=== PATIENT | female | born 1945 | race Caucasian/White ===

== ENCOUNTER 2017-02-12 21:10 | Inpatient (IN) ==
[2017-02-12] MEDS ORDERED: ONDANSETRON 4 MG/2 ML VIAL IV STA (22:58)
[2017-02-12] MEDS ORDERED: SODIUM CHLORIDE 0.9% 1,000 ML IV STA (22:58)
[2017-02-12 23:07] LABS: Basophils % 0.1 % (0.0-0.8); Hematocrit 38.2 VOL% (35.7-47.0); Hemoglobin 12.7 GM/DL (12.0-16.0); Immature Granulocytes Absolute 0.29 #; Lymphocytes # 1.6 10*3/uL (1.4-4.0); Lymphocytes % 5.7 % (21.3-54.2); Mean Corpuscular HGB Conc 33.2 GM/DL (32-36); Mean Corpuscular Hemoglobin 31 PG (27-34); Mean Corpuscular Volume 92.5 FL (87-102); Mean Platelet Volume 10.6 FL (9.6-12.0); Monocytes # 1.9 10*3/uL (0.11-0.8); Monocytes % 6.8 % (1.7-12.7); Neutrophils # 24.1 10*3/uL (1.4-7.4); Neutrophils % 86.4 % (38.7-73.9); Platelet Count 300 T/CUMM (130-400); Red Blood Count 4.13 MC/CUMM (3.8-5.5); Red Cell Distribution Width 12.6 % (9.3-17.3)
[2017-02-12] MEDS ORDERED: ONDANSETRON 4 MG/2 ML VIAL ONE (23:07)
[2017-02-12] MEDS ORDERED: ACETAMINOPHEN 500 MG TABLET PO STA (23:18)
[2017-02-12 23:19] LABS: Apearance,Urine CLOUDY (Clear); Bacteria,Urine Moderate /HPF (Few); Bilirubin,Urine Negative (Negative); Blood, Urine Small mg/dL (Negative); Glucose,Urine (UA) 150 mg/dL (Negative); Ketones,Urine 5 mg/dL (Negative); Nitrite,Urine Negative (Negative); Protein,Urine 30 MG/DL; RBC,Urine 7 /HPF (0-4); Urine Color Yellow (Yellow); Urine Specific Gravity 1.011 (1.001-1.035); Urine Urobilinogen < 2.0 EU/DL (0.2-1.0); WBC,Urine 485 /HPF (0-6)
[2017-02-12] MEDS ORDERED: ACETAMINOPHEN 500 MG TABLET ONE (23:20)
[2017-02-12 23:24] LABS: Albumin 3.1 G/DL (3.4-5.0); Bilirubin,Total 0.6 MG/DL (0.2-1.0); Calcium 9.4 MG/DL (8.5-10.1); Osmolality,Calculated 269.1 MOS/KG (273-304); Potassium 3.9 MMOL/L (3.5-5.1); Total Protein 8.2 G/DL (6.4-8.3)
--- NOTE | 2017-02-12 23:31 | EKG Report ---
Stationary ECG Study [facility] Test Date: 02/12/2017 11:31:34 PM Pat Name: BARBARA PEREZ Department: Room: Gender: F Clinical Trial Specialist: : [id number] Requested by: Edith Orr Order Number: [id number] Reading MD: MAGUI WEBB Intervals [place] Rate: 110 P: 999 WA: 0 QRS: 69 QRSD: 83 T: 74 QT: 349 QTc: 414 Interpretive Statements ATRIAL FLUTTER/TACHYCARDIA WITH RAPID VENTRICULAR RESPONSE ABNORMAL RHYTHM ECG Electronically Signed On 02-15-17 08:43:55 CDT by MAGUI WEBB [email or web address]
[2017-02-13 00:25] LABS: Band Neutrophils 7 % (0-10); Lymphocytes 6 % (20-55); Segmented Neutrophils 85 % (50-85)
[2017-02-13 00:26] LABS: Platelet Estimate Normal; Total Cells Counted 100
[2017-02-13] MEDS ORDERED: ONDANSETRON 4 MG/2 ML VIAL ONE (00:55)
[2017-02-13] MEDS ORDERED: ONDANSETRON 4 MG/2 ML VIAL IV STA (01:05)
[2017-02-13] MEDS ORDERED: ONDANSETRON 4 MG/2 ML VIAL IV PRN (01:44)
[2017-02-13] MEDS ORDERED: DEXTROSE 50% 25 GM/50 ML VIAL IV PRN (01:44)
[2017-02-13] MEDS ORDERED: GLUCAGON 1 MG VIAL IM PRN (01:44)
--- NOTE | 2017-02-13 01:55 | Emergency Department Note ---
IEsthela Mantricia, am scribing for, and in the presence of, Edith Orr DO 23:29. IKirby Catherine, DO, personally performed the services described in this documentation, ascribed by Dread Proctor in my presence, and it is both accurate and complete . Arrival - Arrival Chief Complaint: Urogenital - Female Stated Complaint: Kidney infection ED Nursing Triage Note: C/C burning on urination, fever. Fell last night, confusion, urinating on herself according to . Pt is confused has trouble answering questions. Mode of Arrival: Wheelchair Limitations: No Limitations Source: Patient, Family Time Seen by Provider: 02/12/17 22:32 - History of Present Illness HPI Narrative: Pt is a 71 y/o white female arriving to ED by EMS with c/o a severe UTI and yeast infection that onset about a week ago. reports that pt never gets a chance to finish her antibiotics because her doctors always want to swap her medications. Pt went to bed earlier than usual around 19:30 and got up within the next hour to use the restroom and fell to the floor. then stated that it took him a while to get her off the floor and back into bed. Once into the bed, reports that the pt urinated on herself all night. He found her "laying in a pool of urine." states that the pt has not eaten or drink anything in the last 36 hours, but she's more oriented now than she was earlier. He also reports that the pt has been having seizures "for a lifetime" but they have been under control within the last month or so. Onset (ago): week(s) Consistency: constant Severity: mild Severity scale (1-10): 3 Allergies/Adverse Reactions: Allergies Allergy/AdvReac Type Severity Reaction Status Date / Time carbamazepine [From Tegretol] Allergy Swelling Verified 02/12/17 21:19 of Lip/Tongue/Throat Home Medications: Home Medications Medication Instructions Recorded Confirmed Type Lisinopril 20 mg PO BEDTIME 06/01/15 02/12/17 History Metformin HCl [Metformin HCl ER] 1,000 mg PO BID 06/01/15 02/12/17 History Rosuvastatin Calcium [Crestor] 40 mg PO BEDTIME 06/01/15 02/12/17 History glipiZIDE [Glucotrol] 10 mg PO BIDAC 06/01/15 02/12/17 History Divalproex [Depakote] 500 mg PO TID 06/16/16 02/12/17 History Topiramate 100 mg PO QID 06/16/16 02/12/17 History Duloxetine HCl [Duloxetine] 30 mg PO DAILY 01/28/17 02/12/17 History Hydrocodone/Acetaminophen 1 tablet PO Q6HR PRN 01/28/17 02/12/17 History [Hydrocodon-Acetaminoph 7.5-325] Meloxicam 7.5 mg PO BID 01/28/17 02/12/17 History Acetaminophen Tab [Tylenol Tab] 650 mg PO Q4H PRN #0 tablet 02/01/17 02/12/17 Rx Aspirin Tab 325 mg PO DAILY tablet 02/01/17 02/12/17 Rx Carvedilol [Coreg] 3.125 mg PO BID tablet 02/01/17 02/12/17 Rx Clopidogrel [Plavix] 75 mg PO BEDTIME tablet 02/01/17 02/12/17 Rx Cyanocobalamin Inj [Vitamin B12 1,000 mcg IM DAILY vial 02/01/17 02/12/17 Rx Inj] Ergocalciferol [Drisdol] 50,000 unit PO Q7D capsule 02/01/17 02/12/17 Rx Levothyroxine Tab [Synthroid Tab] 25 mcg PO DAILY@0700 tablet 02/01/17 Rx Review of System - Review of System 12 point system: reviewed and no additional remarkable complaints except as stated - Review of System Constitutional: Present: chills. Absent: diaphoresis, fever, night sweats Eyes: Absent: discharge, pain, redness Head/Ears/Nose/Throat: Absent: earache, epistaxis Respiratory: Absent: cough, respiratory distress Cardiovascular: Absent: chest pain, palpitations, dyspnea on exertion Gastrointestinal: Absent: abdominal pain, nausea, vomiting, diarrhea Genitourinary female: Present: frequency, urgency. 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[place]) Psychological: History of: Depression (Better now) Neurology: History of: Cerebrovascular Accident (brainstem stroke), Seizures HEENT: History of: Eye Problem (Glasses/Cataracts) Endocrine: History of: Diabetes Mellitus (NIDDM) Respiratory: History of: Pneumonia (17 YEARS AGO) No history of: Respiratory Problems (Flu Vac ?2013) Renal: History of: Renal Problems (Kidney Infection 2016-Febrile Seizure) Genitourinary: History of: Bladder Problem (Small Bladder), Recurring Urinary Tract Infections, Problems (NEUROGENIC BLADDER) Musculoskeletal: History of: Back/Neck Problems (ARTHRITIS IN BACK) Other: No history of: Anesthesia Reactions, Cancer - Surgical History Cardiac Surgeries: Sugical HX of: Femoral-Popliteal Bypass Graft, Cardiac Catheterization, Cardiac Surgery (QUAD Bypass) HEENT Surgeries: Surgical HX of: Tonsilectomy & Adenoidectomy Patient denies: Eye Surgery (06/17/16 Cataract Lt Eye; 07/15/[address] Palacios) Abdominal Surgeries: Surgical HX of: Appendectomy Patient denies: Colonoscopy Reproductive Surgeries: Surgical HX of;: Breast Surgery (Breast Implants), Hysterectomy (Complete) - Family History Family History: Reports;: Family Diabetes (GRAND MOTHER,AUNTS), Family Heart Disease (MOTHER,SISTER,BROTHER), Family Hypertension (GRAND MOTHER) Denies;: Family Anesthesia Reaction, Family Cancer, Family Psychiatric Problems, Family Stroke - Social History Smoking Status: Never smoker Frequency of Alcohol Use: None Type of Drug Use: None Marital Status: Lives With:: Spouse Functional capacity: independent ambulation Exam Vital Signs: Vital Signs Temperature 100.9 F H 02/12/17 23:33 Pulse Rate 88 02/13/17 01:04 Respiratory Rate 20 02/13/17 01:04 Blood Pressure 129/59 02/13/17 01:04 O2 Sat by Pulse Oximetry 100 02/13/17 01:04 - General General appearance: alert, in no apparent distress - Head Head exam: Present: atraumatic, normocephalic, normal inspection - Eye Eye exam: Present: normal appearance, PERRL, EOMI - ENT ENT exam: Present: normal exam, normal oropharynx, mucous membranes moist, TM's normal bilaterally, normal external ear exam - Neck Neck exam: Present: normal inspection, full ROM, trachea midline. Absent: tenderness - Chest Chest inspection: Present: normal inspection, symmetric chest wall rise. Absent : tenderness - Respiratory Respiratory exam: Present: normal lung sounds bilaterally - Cardiovascular Cardiovascular exam: Present: regular rate, normal rhythm, normal heart sounds - Abdominal Exam Abdominal exam: Present: soft, tenderness (suprapubic pain), normal bowel sounds. Absent: distention, guarding, rebound - Extremities Exam Extremities exam: Present: normal inspection, full ROM, normal capillary refill. Absent: tenderness, pedal edema - Back Exam Back exam: Present: normal inspection, full ROM. Absent: tenderness - Neurological Exam Neurological exam: Present: alert, oriented X3, CN II-XII intact - Psychiatric Psychiatric exam: Present: normal affect, normal mood - Skin Skin exam: Present: warm, dry, intact, normal color Course Course Narrative: This is a 71-year-old female is coming into the ER tonight with a possible urinary tract and bladder infection. Her reports that she has a chronic neurogenic bladder that they have been dealing with the past 3 years. He reports she only holds about 300 cc and urinates approximately 6-8 times throughout the night. She was recently treated in our facility about the middle of January for UTI. She was inpatient for a few days and then went home on several different antibiotics. He reports that everything usually grows resistant to the medicines. She has been having symptoms for about the last 48 hours he reports some confusion she has been very weak she has been in bed. He states she has been more incontinent than normal and that usually is a sign that she has an infection. Her is also concerned about possible yeast infection stating they did give her some Diflucan but he feels the infection possibly did not go all the way away. The patient herself to states she does not feel well she has chills and generalized malaise. No other symptoms are reported at this time physical exam she is febrile vital signs are otherwise stable HEENT exam reveals oral mucosa to be dry her neck is supple heart is regular rate and rhythm her lungs are clear abdomen is rounded soft she has suprapubic pain no rebound guarding or masses are noted her extremities are intact her neurologic exam is nonfocal treatment included IV fluids we treated her fever I gave her antibiotics and cultures are thoroughly. Chest x-ray CT had EKG and multiple lab tests were done. She is improving at my last evaluation she states she is feeling better. I will contact the hospitalist and we will be admitting the patient for treatment of her UTI. - Consultations Consultation #1: Dr. Ribeiro has accepted the patient for admission Time: 01:54 Results - Labs CBC & BMP: 02/12/17 22:33 02/12/17 22:33 Lab Results: I have reviewed the patients labs Labs: Laboratory Tests 02/12/17 02/12/17 02/12/17 22:33 22:33 22:38 WBC 28.0 H Neut % (Auto) 86.4 H Lymph % (Auto) 5.7 L Neut # (Auto) 24.1 H Mcnairy # (Auto) 1.9 H Sodium 128 L Chloride 94 L Anion Gap 16.9 H BUN 16 Creatinine 1.10 H Glucose 323 H Calculated Osmolality 269.1 L ALT 12 L Albumin 3.1 L Globulin 5.1 H Albumin/Globulin Ratio 0.6 L Urine Urobilinogen < 2.0 H Urine Leukocytes Large H - EKG EKG results: interpreted by ERMD - Impressions atrial fib rate about 110 - Diagnostic Findings Procedure: Chest x-ray: image reviewed by me (no acute process), CT: report reviewed by me (head - no acute findings) Disposition Clinical Impression: Urinary tract infection Case discussed with: patient, patient's family Disposition: Still a Patient Condition: Stable Time of Disposition: 01:55
--- NOTE | 2017-02-13 02:42 | Hospitalist History & Physical ---
Assessment and Plan (1) Sepsis Status: Acute Assessment and plan: Patient is most likely succumbing to urinary tract infection. She does have bilateral CVA tenderness of them concerned about possibility of bilateral pyelonephritis. Patient should have lactic acid all drawn. If elevated should be repeated in 6 hours later. More than likely this gram-negative infection involved. I am informed by her who is a retired physician that on the last infection there was also yeast but he is not sure that it was treated. Will check urine Gram stain and urine culture alongside the 2 blood cultures that have been drawn. Patient was given ceftazidime area on up in the emergency room. However I would not use his antibiotics because of recent history of Klebsiella which can easily be induced to be resistant by ceftazidime. I would prefer use of Piperacillin/ tazobactam at 3.375 g every 6 hours and give 3 days of gentamicin 120 mg IV daily. Follow serum creatinine well. This patient is followed by urologist at [facility] therefore to a urologist at this point unless there is obstructive pathology with the ureter and the kidney. Patient is being admitted to Dr. Elisha Cook service Current Visit: Yes (2) UTI (urinary tract infection) Status: Acute Assessment and plan: The above. Repeat urinalysis after 4 days of treatment. Reevaluate antibiotics after 3 days. If there is yeast in urine Gram stain patient should be put on fluconazole 200 mg IV every day for at least 5 days. Encourage cramping the Sawyer catheter 2 hours per shift if the patient can tolerate it. Should allow exposure of the urinary bladder surface area to the high concentration of antibiotics in the urine Current Visit: No History of Present Illness Chief complaint: Fever to 102F/ dysuria/ pyuria History of present illness: Ms. 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 reports that pt never gets a chance to finish her antibiotics because her doctors always want to swap her medications. He reports that this patient has been on amoxicillin, Bactrim, Macrodantin, ciprofloxacin and at one point was given ceftriaxone. In May 2015 patient did have Serratia marcescens and E. coli both these were quite sensitive. But lately by discussion with emergency room physician patient did have Klebsiella pneumoniae. I am also informed that there was yeast involved lately. Pt went to bed earlier than usual around 19:30 and got up within the next hour to use the restroom and fell to the floor. then stated that it took him a while to get her off the floor and back into bed. Once into the bed, reports that the pt urinated on herself all night. He found her "laying in a pool of urine." states that the pt has not eaten or drink anything in the last 36 hours, but she's more oriented now than she was earlier. He also reports that the pt has been having seizures "for a lifetime" but they have been under control within the last month or so. Home Medications Medication Instructions Recorded Confirmed Type Lisinopril 20 mg PO BEDTIME 06/01/15 02/12/17 History Metformin HCl [Metformin HCl ER] 1,000 mg PO BID 06/01/15 02/12/17 History Rosuvastatin Calcium [Crestor] 40 mg PO BEDTIME 06/01/15 02/12/17 History glipiZIDE [Glucotrol] 10 mg PO BIDAC 06/01/15 02/12/17 History Divalproex [Depakote] 500 mg PO TID 06/16/16 02/12/17 History Topiramate 100 mg PO QID 06/16/16 02/12/17 History Duloxetine HCl [Duloxetine] 30 mg PO DAILY 01/28/17 02/12/17 History Hydrocodone/Acetaminophen 1 tablet PO Q6HR PRN 01/28/17 02/12/17 History [Hydrocodon-Acetaminoph 7.5-325] Meloxicam 7.5 mg PO BID 01/28/17 02/12/17 History Acetaminophen Tab [Tylenol Tab] 650 mg PO Q4H PRN #0 tablet 02/01/17 02/12/17 Rx Aspirin Tab 325 mg PO DAILY tablet 02/01/17 02/12/17 Rx Carvedilol [Coreg] 3.125 mg PO BID tablet 02/01/17 02/12/17 Rx Clopidogrel [Plavix] 75 mg PO BEDTIME tablet 02/01/17 02/12/17 Rx Cyanocobalamin Inj [Vitamin B12 1,000 mcg IM DAILY vial 02/01/17 02/12/17 Rx Inj] Ergocalciferol [Drisdol] 50,000 unit PO Q7D capsule 02/01/17 02/12/17 Rx Levothyroxine Tab [Synthroid Tab] 25 mcg PO DAILY@0700 tablet 02/01/17 Rx Allergies Allergy/AdvReac Type Severity Reaction Status Date / Time carbamazepine [From Tegretol] Allergy Swelling Verified 02/12/17 21:19 of Lip/Tongue/Throat Medical,Surgical,& Family Hx - Medical History Cardio: History of: CAD, Hypertension, 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) Psychological: History of: Depression (Better now) Neurology: History of: Cerebrovascular Accident (brainstem stroke), Seizures HEENT: History of: Eye Problem (Glasses/Cataracts) Endocrine: History of: Diabetes Mellitus (NIDDM) Respiratory: History of: Pneumonia (17 YEARS AGO) No history of: Respiratory Problems (Flu Vac ?2013) Renal: History of: Renal Problems (Kidney Infection 2015-Febrile Seizure) Genitourinary: History of: Bladder Problem (Small Bladder), Recurring Urinary Tract Infections, Problems (NEUROGENIC BLADDER) Musculoskeletal: History of: Back/Neck Problems (ARTHRITIS IN BACK) Other: No history of: Anesthesia Reactions, Cancer - Surgical History Cardiac Surgeries: Sugical HX of: Femoral-Popliteal Bypass Graft, Cardiac Catheterization, Cardiac Surgery (QUAD Bypass) HEENT Surgeries: Surgical HX of: Tonsilectomy & Adenoidectomy Patient denies: Eye Surgery (06/17/16 Cataract Lt Eye; 07/15/[address] Palacios) Abdominal Surgeries: Surgical HX of: Appendectomy Patient denies: Colonoscopy Reproductive Surgeries: Surgical HX of;: Breast Surgery (Breast Implants), Hysterectomy (Complete) - Family History Family History: Reports;: Family Diabetes (GRAND MOTHER,AUNTS), Family Heart Disease (MOTHER,SISTER,BROTHER), Family Hypertension (GRAND MOTHER) Denies;: Family Anesthesia Reaction, Family Cancer, Family Psychiatric Problems, Family Stroke - Social History Smoking Status: Never smoker Frequency of Alcohol Use: None Type of Drug Use: None - Constitutional Constitutional: Present: other (Report of fevers and chills) - Respiratory Respiratory: Present: other (No shortness of breath no cough) - Gastrointestinal Gastrointestinal: Present: other (No abdominal pain no diarrhea no vomiting) - Genitourinary Genitourinary: Present: other (Urinary incontinence and recurrent urinary tract infections and dysuria) - Neurological Neurological: Present: other (Unsteady gait patient does have history of brainstem stroke) - Psychiatric Psychiatric: Present: other (Patient is also some psychotropic medications but she has a normal cognitive function this point) Exam - Constitutional Vitals: Period Temp Pulse Resp BP Sys/Alanis Pulse Ox Last 24 Hr 98 F-100.9 F 84-109 16-20 112-192/56-120 96-100 General appearance: under weight - Head Head exam: Present: normal inspection, normocephalic - Eye Eye exam: Present: EOMI, other (Anicteric sclera no conjunctival petechiae) Pupils: Present: SMOOTH - ENT ENT exam: Present: normal oropharynx - Neck Neck exam: Present: normal inspection - Respiratory Respiratory exam: Present: clear to auscultation bilaterally - Cardiovascular Cardiovascular exam: Present: regular rate and rhythm - Extremities Exam Extremities exam: Present: other (Generalized weakness but can move extremities) - Psychiatric Psychiatric exam: Present: normal affect, normal mood - Skin Skin exam: Present: normal color, warm, dry Results - Labs CBC & BMP: 02/12/17 22:33 02/12/17 22:33 Lab Results: I have reviewed the past 24 hour labs (Noted a leukemoid state creatinine 1.1 glucose was high at 323 she has hyponatremia 1 28 mmol/L alongside a low chloride 2 sets of blood cultures have been sent x-ray shows some fibrotic changes and osteopenic bone structures)
[2017-02-13] MEDS: SODIUM CHLORIDE 0.9% 1,000 ML IV SCH ×2 (03:05→18:21)
[2017-02-13] MEDS: PIPERACILLIN/TAZOBACTAM 3,375 MG in SODIUM CHLORIDE 0.9% 100 ML IV SCH ×3 (03:10→18:21)
[2017-02-13] MEDS: LEVOTHYROXINE 25 MCG TABLET PO SCH (06:55)
[2017-02-13] MEDS: ACETAMINOPHEN 325 MG TABLET PO PRN ×2 (06:56→22:56)
--- NOTE | 2017-02-13 08:44 | CT Report ---
CT head/brain wo con INDICATION: Altered mental status/confusion The total DLP is 997.9 mGy*cm. COMPARISON: Noncontrast CT head dated 01/28/2017 Technique: Serial axial tomographic images of the brain were obtained without the use of intravenous contrast. Dose reduction: This CT exam was performed using one or more of the following dose reduction techniques: Automated exposure control, automated adjustment of the mA and/or KV according to patient size, or use of iterative reconstruction technique. Findings: Mild generalized atrophy is noted with mild prominence of the sulci and cortical volume loss. Periventricular white matter hypodensity changes are noted bilaterally which do not demonstrate mass effect and are nonspecific but favored to represent sequela of chronic microvascular ischemia. There is no evidence of vascular territory infarct or acute intracranial hemorrhage. The saleh-white matter differentiation is generally maintained. There is no hydrocephalus. The basilar cisterns are patent. The visualized paranasal sinuses, mastoid air cells and middle ear cavities are predominantly clear. The included orbits and their contents appear within normal limits. The visualized osseous structures and overlying soft tissues of the skull and face demonstrate no acute abnormality. IMPRESSION: No acute intracranial abnormality. Similar mild generalized atrophy and sequela of chronic microvascular ischemia. Preliminary report by virtual radiologic. PROCEDURE INTERPRETED AT [facility] DEPARTMENT OF RADIOLOGY Final Report Signed by: Nain Casillas
[2017-02-13] MEDS: ASPIRIN 325 MG TABLET PO SCH (09:30)
[2017-02-13] MEDS: CARVEDILOL 3.125 MG TABLET PO SCH ×2 (09:30→21:03)
[2017-02-13] MEDS: DIVALPROEX 500 MG TABLET PO SCH ×3 (09:31→21:03)
[2017-02-13] MEDS: DULoxetine 30 MG CAPSULE PO SCH (09:31)
[2017-02-13] MEDS: glipiZIDE 10 MG TABLET PO SCH ×2 (09:31→16:35)
[2017-02-13] MEDS: GENTAMICIN INJ 120 MG in SODIUM CHLORIDE 0.9% 100 ML IV SCH (09:39)
--- NOTE | 2017-02-13 09:49 | Hospitalist Progress Note ---
Assessment and Plan (1) UTI (urinary tract infection) Status: Acute Assessment and plan: She was begun last night on intravenous Zosyn. She continues to complain of dysuria for which I will prescribe Pyridium. Current Visit: No Qualifiers: Urinary tract infection type: site unspecified Hospitalist: Subjective Interval history: Ms. Chadwick was hospitalized here during the night with recurrent urinary tract infection she has been treated in the past as an outpatient with multiple antibiotics. She was begun last night on Zosyn. Her major complaint today is that of dysuria. She is not experiencing fever, shaking chills, or other pain. Exam - Constitutional Vitals: Period Temp Pulse Resp BP Sys/Alanis Pulse Ox Last 24 Hr 97.9 F-103.0 F 84-114 18-20 121-154/54-78 92-98 General appearance: no acute distress, other (Frail-appearing) - Head Head exam: Present: normal inspection, normocephalic - Eye Eye exam: Present: EOMI Pupils: Present: SMOOTH - Neck Neck exam: Present: normal inspection - Respiratory Respiratory exam: Present: clear to auscultation bilaterally - Cardiovascular Cardiovascular exam: Present: regular rate and rhythm - GI/Abdominal GI/Abdominal exam: Present: normal bowel sounds, soft, other (Nontender with no palpable masses or hepatosplenomegaly) - Extremities Exam Extremities exam: Present: normal inspection - Back Exam Back exam: Present: normal inspection - Neurological Exam Neurological exam: Present: alert, oriented X3 - Psychiatric Psychiatric exam: Present: normal affect, normal mood - Skin Skin exam: Present: normal color, warm, dry Results - Labs CBC & BMP: 02/12/17 22:33 02/12/17 22:33
--- NOTE | 2017-02-13 09:50 | Ultrasound Report ---
US retroperitoneal comp Indication: Recurrent UTIs. Comparison: None. Technique: Multiple longitudinal and transverse real-time sonographic images of the kidneys were obtained. Findings: The right kidney measures 12.4 x 4.6 x 5 cm, and the left kidney measures 11.5 x 5.1 x 5.6 cm. Mild hydronephrosis is noted on the left. There is no evidence of nephrolithiasis or abnormal perinephric fluid collections. Renal cortical echogenicity and thickness are within normal limits. There is no hydronephrosis on the right. The bladder is imaged and a Sawyer catheter is noted in place. Bladder measurements, as visualized, are 5.9 x 4.1 x 6.5 cm. IVC is patent. Abdominal aorta is nonaneurysmal. There is no evidence of surrounding ascites. Ultrasound images were captured and stored. IMPRESSION: Mild left hydronephrosis. Otherwise, unremarkable renal ultrasound.. PROCEDURE INTERPRETED AT [facility] DEPARTMENT OF RADIOLOGY Final Report Signed by: Nain Casillas
[2017-02-13] MEDS: PHENAZOPYRIDINE 95 MG TABLET PO SCH ×2 (10:48→16:35)
--- NOTE | 2017-02-13 14:03 | XRay Report ---
Exam: XR chest 1V portable Indication: Confusion, altered mental status Comparison study: 01/28/2017 Findings: Cardiac silhouette in the stomach contours appear stable from prior. Postsurgical changes including CABG mediastinal taniya comma median sternotomy wiring and partially calcified breast implants appear similar prior. There is no focal consolidation, pneumothorax or pleural effusion. Osseous structures appear stable from prior. Impression: No acute cardiopulmonary process. No significant interval change. PROCEDURE INTERPRETED AT [facility] DEPARTMENT OF RADIOLOGY Final Report Signed by: Nain Casillas
[2017-02-13] MEDS: LISINOPRIL 20 MG TABLET PO SCH (21:02)
[2017-02-13] MEDS: ROSUVASTATIN 20 MG TABLET PO SCH (21:02)
[2017-02-13] MEDS: CLOPIDOGREL 75 MG TABLET PO SCH (21:02)
[2017-02-14] MEDS: PIPERACILLIN/TAZOBACTAM 3,375 MG in SODIUM CHLORIDE 0.9% 100 ML IV SCH ×2 (03:06→16:13)
[2017-02-14] MEDS: LEVOTHYROXINE 25 MCG TABLET PO SCH (06:14)
[2017-02-14] MEDS: DIVALPROEX 500 MG TABLET PO SCH ×3 (09:26→21:57)
[2017-02-14] MEDS: ASPIRIN 325 MG TABLET PO SCH (09:26)
[2017-02-14] MEDS: PHENAZOPYRIDINE 95 MG TABLET PO SCH ×2 (09:26→17:45)
[2017-02-14] MEDS: glipiZIDE 10 MG TABLET PO SCH (09:26)
[2017-02-14] MEDS: CARVEDILOL 3.125 MG TABLET PO SCH ×2 (09:27→21:57)
[2017-02-14] MEDS: GENTAMICIN INJ 120 MG in SODIUM CHLORIDE 0.9% 100 ML IV SCH (09:32)
[2017-02-14] MEDS: DULoxetine 30 MG CAPSULE PO SCH (09:33)
--- NOTE | 2017-02-14 10:26 | Hospitalist Progress Note ---
Assessment and Plan (1) UTI (urinary tract infection) Status: Acute Assessment and plan: Urine culture demonstrated gram-negative rods. Sensitivities are pending. Blood cultures were negative. She will continue on intravenous Zosyn. Current Visit: No Qualifiers: Urinary tract infection type: site unspecified (2) Diabetes Status: Chronic Assessment and plan: She has type 2 diabetes mellitus which has been treated with metformin and glipizide. I will continue her present medications and regular sliding scale insulin coverage. Current Visit: No Qualifiers: Diabetes mellitus type: type 2 Diabetes mellitus complication status: without complication Hospitalist: Subjective Interval history: Ms. Chadwick was hospitalized here 2 days ago with recurrent urinary tract infections. She has been treated since her hospitalization with intravenous Zosyn. Her major complaint is been dysuria which has been somewhat improved with Pyridium. She has a history of type 2 diabetes mellitus treated with glipizide and metformin. Her glucose this morning was 61. I will discontinue the glipizide. She will be treated with Metformin and regular sliding scale insulin coverage. Exam - Constitutional Vitals: Period Temp Pulse Resp BP Sys/Alanis Pulse Ox Last 24 Hr 97.8 F-102.5 F 69-100 18-20 80-153/40-66 93-96 General appearance: no acute distress - Head Head exam: Present: normal inspection, normocephalic - Eye Eye exam: Present: EOMI Pupils: Present: SMOOTH - Neck Neck exam: Present: normal inspection - Respiratory Respiratory exam: Present: clear to auscultation bilaterally - Cardiovascular Cardiovascular exam: Present: regular rate and rhythm - GI/Abdominal GI/Abdominal exam: Present: normal bowel sounds, soft, other (Nontender with no palpable masses or hepatosplenomegaly.) - Extremities Exam Extremities exam: Present: normal inspection - Back Exam Back exam: Present: normal inspection - Neurological Exam Neurological exam: Present: alert, oriented X3 - Psychiatric Psychiatric exam: Present: normal affect, normal mood - Skin Skin exam: Present: normal color, warm, dry Results - Labs CBC & BMP: 02/12/17 22:33 02/12/17 22:33
[2017-02-14] MEDS ORDERED: GLUCAGON 1 MG VIAL IM PRN (10:29)
[2017-02-14] MEDS ORDERED: DEXTROSE 50% 25 GM/50 ML VIAL IV PRN (10:29)
[2017-02-14] MEDS: INSULIN REGULAR 100 UNIT/ML SUBCUT SCH ×2 (13:47→17:46)
[2017-02-14] MEDS: SODIUM CHLORIDE 0.9% 1,000 ML IV SCH (13:48)
[2017-02-14] MEDS: LISINOPRIL 20 MG TABLET PO SCH (21:57)
[2017-02-14] MEDS: CLOPIDOGREL 75 MG TABLET PO SCH (21:57)
[2017-02-14] MEDS: ROSUVASTATIN 20 MG TABLET PO SCH (21:57)
[2017-02-15] MEDS: PIPERACILLIN/TAZOBACTAM 3,375 MG in SODIUM CHLORIDE 0.9% 100 ML IV SCH ×3 (00:34→14:38)
[2017-02-15] MEDS: INSULIN REGULAR 100 UNIT/ML SUBCUT SCH ×4 (00:40→17:46)
[2017-02-15 05:33] LABS: Eosinophils % 0.2 % (0.00-10.9); Hematocrit 25.5 VOL% (35.7-47.0); Hemoglobin 8.6 GM/DL (12.0-16.0); Immature Granulocytes % 0.8 %; Immature Granulocytes Absolute 0.05 #; Lymphocytes # 0.9 10*3/uL (1.4-4.0); Lymphocytes % 14.5 % (21.3-54.2); Mean Corpuscular HGB Conc 33.7 GM/DL (32-36); Mean Corpuscular Hemoglobin 30 PG (27-34); Mean Corpuscular Volume 90.1 FL (87-102); Mean Platelet Volume 11.2 FL (9.6-12.0); Monocytes # 0.6 10*3/uL (0.11-0.8); Monocytes % 8.5 % (1.7-12.7); Neutrophils # 4.9 10*3/uL (1.4-7.4); Platelet Count 185 T/CUMM (130-400); Red Blood Count 2.83 MC/CUMM (3.8-5.5); Red Cell Distribution Width 12.5 % (9.3-17.3); White Blood Count 6.5 T/CUMM (4-12)
[2017-02-15 06:05] LABS: Potassium 3.5 MMOL/L (3.5-5.1)
[2017-02-15 06:39] LABS: Hypochromasia Slight
[2017-02-15 06:40] LABS: Microcytosis 1+; Platelet Estimate Adequate
[2017-02-15] MEDS: LEVOTHYROXINE 25 MCG TABLET PO SCH (06:46)
[2017-02-15] MEDS: CARVEDILOL 3.125 MG TABLET PO SCH ×2 (09:05→20:38)
[2017-02-15] MEDS: ASPIRIN 325 MG TABLET PO SCH (09:05)
[2017-02-15] MEDS: PHENAZOPYRIDINE 95 MG TABLET PO SCH ×2 (09:05→17:23)
[2017-02-15] MEDS: DIVALPROEX 500 MG TABLET PO SCH ×3 (09:05→20:38)
[2017-02-15] MEDS: DULoxetine 30 MG CAPSULE PO SCH (09:06)
--- NOTE | 2017-02-15 13:13 | Hospitalist Progress Note ---
Assessment and Plan (1) UTI (urinary tract infection) Status: Acute Assessment and plan: Impression: 1. Urinary tract infection with bacteremia Plan: I have requested infectious disease consultation. We have several antibiotic choices, and I will defer any possible changes to infectious disease. This note was completed using Roambi voice recognition software. There may be pet sitter errors as a result. Current Visit: No Qualifiers: Urinary tract infection type: acute pyelonephritis Qualified Code(s): N10 - Acute pyelonephritis Hospitalist: Subjective Interval history: Follow-up urinary tract infection with bacteremia, recurrent. The patient is known to me from a hospitalization a couple weeks ago. At that time, I discharged her after she had been in the hospital for treatment of recurring UTIs and bacteremia. This is apparently been an ongoing problem for several years now. She has seen urology and numerous primary care physicians for management of the problem, and the infection always returns. She is now growing Klebsiella in both the blood and the urine, and it is sensitive to current antibiotics. The has requested infectious disease consultation. Exam - Constitutional Vitals: Period Temp Pulse Resp BP Sys/Alanis Pulse Ox Last 24 Hr 97.4 F-99.1 F 60-75 18-20 119-157/56-70 94-97 Vital signs are noted above. Heart is regular with distant tones and no murmur or gallop. Lungs are clear with no rales or wheezes. Abdomen is soft without any mass or tenderness. She is awake and alert. Results - Labs CBC & BMP: 02/15/17 04:51 02/15/17 04:51 Lab Results: I have reviewed the past 24 hour labs (Blood cultures are growing Klebsiella sensitive to current antibiotics)
--- NOTE | 2017-02-15 15:49 | Infectious Disease Consult ---
Assessment and Plan (1) Septicemia due to Klebsiella pneumoniae Status: Acute Assessment and plan: Source is urinary tract infection. Recommendations: 1. Repeat blood cultures to document resolution of the septicemia 2. De-escalate from Zosyn to ceftriaxone 2 g IV daily 3. Consult social services designee to arrange home IV infusion; patient will need antibiotics for at least 2 weeks from today, assuming repeat blood cultures are negative 4. Patient may need to have a PICC line placed to receive her IV antibiotics Thank you very much for the consult. Will follow. Discussed in detail with at bedside. Current Visit: Yes (2) Sepsis Status: Acute Current Visit: Yes (3) Urinary tract infection Status: Acute Assessment and plan: This is a recurring problem and the history of neurogenic bladder is likely the cause. She will be treated with ceftriaxone as noted above. After completion of current treatment we will address in the office setting prophylactic antibiotic therapy and use of other agents such as Hiprex. Patient may also need to resume in and out catheterizations. I told her and her that 2 months was not long enough to make a determination on effectiveness. Current Visit: Yes (4) Diabetes Status: Chronic Assessment and plan: This also promotes increased risk of infections. Per A1c is about 7.6% which is fair. Current Visit: No Qualifiers: Diabetes mellitus type: type 2 Diabetes mellitus complication status: without complication (5) Dyslipidemia Status: Chronic Current Visit: No (6) Hypertension Status: Chronic Current Visit: No (7) Seizure disorder Status: Chronic Assessment and plan: Will avoid use of quinolones as this will decrease seizure threshold in this patient. Current Visit: No History of Present Illness Chief complaint: UTI with positive blood culture History of present illness: Ms. Chadwick is a 71 year old female With history of recurring UTI over the past 3 years. Per she has a neurogenic bladder and retains about 100 cc of urine every time she voids. She has tried in and out catheterizations but apparently did not help but they only did this for about 2 months. She is almost always on antibiotics, has been on numerous courses of antibiotics over the past few years. This year alone she has at least 6 different courses of antibiotics. She was admitted about 2 weeks ago and diagnosed with Klebsiella urinary tract infection. She was treated with ceftriaxone for about 4 days and sent home on Bactrim however she continued to have discomfort in her back and felt a UTI never resolved. She presented to the hospital 3 days ago with severe confusion and fever and was found to have significant leukocytosis. Cultures were done and blood and urine came back positive for the same Klebsiella pneumoniae. Associated symptoms include dysuria and increased urinary frequency. Patient also has been anorexic but no vomiting and no diarrhea. She has had pain in both sides. Patient has been on Zosyn and has improved significantly since admission. I am asked to recommend therapy in preparation for discharge home. Home Medications Medication Instructions Recorded Confirmed Type Lisinopril 20 mg PO BEDTIME 06/01/15 02/13/17 History Metformin HCl [Metformin HCl ER] 1,000 mg PO BID 06/01/15 02/13/17 History Rosuvastatin Calcium [Crestor] 40 mg PO BEDTIME 06/01/15 02/13/17 History glipiZIDE [Glucotrol] 10 mg PO BIDAC 06/01/15 02/13/17 History Divalproex [Depakote] 500 mg PO TID 06/16/16 02/13/17 History Topiramate 100 mg PO QID 06/16/16 02/13/17 History Duloxetine HCl [Duloxetine] 30 mg PO DAILY 01/28/17 02/13/17 History Hydrocodone/Acetaminophen 1 tablet PO Q6HR PRN 01/28/17 02/13/17 History [Hydrocodon-Acetaminoph 7.5-325] Meloxicam 7.5 mg PO BID 01/28/17 02/13/17 History Acetaminophen Tab [Tylenol Tab] 650 mg PO Q4H PRN #0 tablet 02/01/17 02/13/17 Rx Aspirin Tab 325 mg PO DAILY tablet 02/01/17 02/13/17 Rx Carvedilol [Coreg] 3.125 mg PO BID tablet 02/01/17 02/13/17 Rx Clopidogrel [Plavix] 75 mg PO BEDTIME tablet 02/01/17 02/13/17 Rx Cyanocobalamin Inj [Vitamin B12 1,000 mcg IM DAILY vial 02/01/17 02/13/17 Rx Inj] Ergocalciferol [Drisdol] 50,000 unit PO Q7D capsule 02/01/17 02/13/17 Rx Levothyroxine Tab [Synthroid Tab] 25 mcg PO DAILY@0700 tablet 02/01/17 Rx Ranitidine Tab [Zantac Tab] 150 mg PO BID 02/13/17 02/13/17 History Allergies Allergy/AdvReac Type Severity Reaction Status Date / Time carbamazepine [From Tegretol] Allergy Swelling Verified 02/12/17 21:19 of Lip/Tongue/Throat 12 point system: reviewed and no additional remarkable complaints except as stated (Per HPI) Medical,Surgical,& Family Hx - Medical History Cardio: History of: CAD, Hypertension, Cardiovascular Problems (Wraparound Facilitator Dr[facility]) Psychological: History of: Depression (Better now) Neurology: History of: Cerebrovascular Accident (brainstem stroke), Seizures HEENT: History of: Eye Problem (Glasses/Cataracts) Endocrine: History of: Diabetes Mellitus (NIDDM) Respiratory: History of: Pneumonia (17 YEARS AGO) No history of: Respiratory Problems (Flu Vac ?2013) Renal: History of: Renal Problems (Kidney Infection 2015-Febrile Seizure) Genitourinary: History of: Bladder Problem (Small Bladder), Recurring Urinary Tract Infections, Problems (NEUROGENIC BLADDER) Musculoskeletal: History of: Back/Neck Problems (ARTHRITIS IN BACK) Other: No history of: Anesthesia Reactions, Cancer - Surgical History Cardiac Surgeries: Sugical HX of: Femoral-Popliteal Bypass Graft, Cardiac Catheterization, Cardiac Surgery (QUAD Bypass) HEENT Surgeries: Surgical HX of: Tonsilectomy & Adenoidectomy Patient denies: Eye Surgery (06/17/16 Cataract Lt Eye; 07/15/[address] Palacios) Abdominal Surgeries: Surgical HX of: Appendectomy Patient denies: Colonoscopy Reproductive Surgeries: Surgical HX of;: Breast Surgery (Breast Implants), Hysterectomy (Complete) - Family History Family History: Reports;: Family Diabetes (GRAND MOTHER,AUNTS), Family Heart Disease (MOTHER,SISTER,BROTHER), Family Hypertension (GRAND MOTHER) Denies;: Family Anesthesia Reaction, Family Cancer, Family Psychiatric Problems, Family Stroke - Social History Smoking Status: Never smoker Frequency of Alcohol Use: None Type of Drug Use: None Infectious Disease Exam H&P - Constitutional Vitals: Vital Signs Temp Pulse Resp BP Pulse Ox 97.4 F L 60 20 139/59 97 02/15/17 12:17 02/15/17 12:17 02/15/17 12:17 02/15/17 12:17 02/15/17 12:17 Intake and Output 02/14/17 02/15/17 02/15/17 23:59 07:59 15:59 Intake Total 700 / 700 100 / 100 700 / 700 Output Total 1450 / 1450 300 / 300 500 / 500 Balance -750 / -750 -200 / -200 200 / 200 Intake: IV 100 / 100 100 / 100 100 / 100 Zosyn 3,375 mg In Ns 100 100 / 100 100 / 100 100 / 100 ml @ 25 mls/hr IV Q8H [facility] Rx#:[id number] Oral 600 / 600 600 / 600 Output: Urine 1450 / 1450 300 / 300 500 / 500 Other: Voiding Method Indwelling Catheter Indwelling Catheter Indwelling Catheter # Bowel Movements 1 0 Exam: General: Patient relatively comfortable, conversant HEENT: Mucous membranes very pale but moist, anicteric acyanotic, PERRLA, no oropharyngeal exudates Neck: Supple, no thyroid gland enlargement, no lymphadenopathy Respiratory system: Breath sounds vesicular, no crepitations or wheezes Cardiovascular: Normal S1 and S2, no murmurs appreciated Abdomen: Normal bowel sounds, soft nontender throughout, no organomegaly or mass Genitourinary: No CVA tenderness, no suprapubic pain or bladder distention Extremities: no edema Skin: No rash Reports - Labs CBC & BMP: 02/15/17 04:51 02/15/17 04:51 Labs: Laboratory Results - last 24 hr 02/14/17 02/15/17 02/15/17 16:13 00:39 04:51 WBC 6.5 D RBC 2.83 L D Hgb 8.6 L D Hct 25.5 L MCV 90.1 MCH 30 MCHC 33.7 RDW 12.5 Plt Count 185 D MPV 11.2 Neut % (Auto) 76.0 H Lymph % (Auto) 14.5 L [place] % (Auto) 8.5 Eos % (Auto) 0.2 Baso % (Auto) 0.0 Neut # (Auto) 4.9 Lymph # (Auto) 0.9 L [place] # (Auto) 0.6 Eos # (Auto) 0.0 Baso # (Auto) 0.0 Immature Gran % 0.8 Nucleated RBC % 0.0 Immature Gran # 0.05 Nucleated RBCs # 0.00 Platelet Estimate Adequate Hypochromasia Slight Microcytosis 1+ Sodium Potassium Chloride Carbon Dioxide Anion Gap BUN Creatinine GFR Calculation BUN/Creatinine Ratio Glucose POC Glucose 193 H 140 H Calculated Osmolality Calcium 02/15/17 02/15/17 02/15/17 04:51 06:06 11:50 WBC RBC Hgb Hct MCV MCH MCHC RDW Plt Count MPV Neut % (Auto) Lymph % (Auto) [place] % (Auto) Eos % (Auto) Baso % (Auto) Neut # (Auto) Lymph # (Auto) [place] # (Auto) Eos # (Auto) Baso # (Auto) Immature Gran % Nucleated RBC % Immature Gran # Nucleated RBCs # Platelet Estimate Hypochromasia Microcytosis Sodium 136 Potassium 3.5 Chloride 104 Carbon Dioxide 24 Anion Gap 11.5 BUN 10 Creatinine 0.50 L GFR Calculation 82 BUN/Creatinine Ratio 20.00 Glucose 101 POC Glucose 110 H 169 H Calculated Osmolality 270.0 L Calcium 8.0 L - Reports Microbiology: Klebsiella pneumoniae in 1 of 2 sets of blood cultures and a urine culture - Diagnostic Findings Procedure: Chest x-ray: report reviewed by me (No acute pathology), Ultrasound: report reviewed by me (Mild left hydronephrosis, no perinephric stranding, no nephrolithiasis)
[2017-02-15] MEDS: cefTRIAXone 2,000 MG in SODIUM CHLORIDE 0.9% 100 ML IV SCH (17:28)
[2017-02-15] MEDS: LISINOPRIL 20 MG TABLET PO SCH (20:37)
[2017-02-15] MEDS: ROSUVASTATIN 20 MG TABLET PO SCH (20:38)
[2017-02-15] MEDS: CLOPIDOGREL 75 MG TABLET PO SCH (20:38)
[2017-02-15] MEDS: SODIUM CHLORIDE 0.9% 1,000 ML IV SCH (22:36)
[2017-02-16] MEDS: INSULIN REGULAR 100 UNIT/ML SUBCUT SCH ×4 (02:32→17:51)
[2017-02-16] MEDS: LEVOTHYROXINE 25 MCG TABLET PO SCH (06:52)
[2017-02-16] MEDS: SODIUM CHLORIDE 0.9% 1,000 ML IV SCH ×3 (08:06→14:28)
--- NOTE | 2017-02-16 09:10 | Infectious Disease Progress ---
Assessment and Plan (1) Septicemia due to Klebsiella pneumoniae Status: Acute Assessment and plan: Source is urinary tract infection. Recommendations: 1. F/U repeat blood cultures 2. Continue ceftriaxone 2 g IV daily 3. PICC line today 4. May be able to go home today and get antibiotics with assistance from home health at home, last day of antibiotic therapy will be 28 February 5. Appointment to see me in the office in 1 week, that would be Wednesday Discussed in detail with at bedside. Discussed with Dr. Oliveros Current Visit: Yes (2) Sepsis Status: Acute Current Visit: Yes (3) Urinary tract infection Status: Acute Assessment and plan: This is a recurring problem and the history of neurogenic bladder is likely the cause. She will be treated with ceftriaxone as noted above. After completion of current treatment we will address in the office setting prophylactic antibiotic therapy and use of other agents such as Hiprex. Patient may also need to resume in and out catheterizations. We liaise with Dr. Morfin in the outpatient setting. Current Visit: Yes (4) Diabetes Status: Chronic Assessment and plan: This also promotes increased risk of infections. Per A1c is about 7.6% which is fair. Current Visit: No Qualifiers: Diabetes mellitus type: type 2 Diabetes mellitus complication status: without complication (5) Dyslipidemia Status: Chronic Current Visit: No (6) Hypertension Status: Chronic Current Visit: No (7) Seizure disorder Status: Chronic Assessment and plan: Will avoid use of quinolones as this will decrease seizure threshold in this patient. Current Visit: No Infectious Disease - PN: Subj Interval history: Patient feeling a little better today, no more fever. No irritative urinary symptoms. No new concerns from . Infectious Disease Exam (PN) - Constitutional Vitals: Temp Pulse Resp BP Pulse Ox 98.5 F 70 20 152/69 92 L 02/16/17 04:00 02/16/17 04:00 02/16/17 06:00 02/16/17 04:00 02/16/17 04:00 General appearance: no acute distress Exam: General appearance: no acute distress - Eye Eye exam: Present: EOMI. no icterus Pupils: Present: SMOOTH - ENT ENT exam: no orgeal exudates - Neck Neck exam: supple, no lymphadenopathy - Respiratory Respiratory exam: vesicular BS, no crepitations or wheezes - Cardiovascular Cardiovascular exam: regular rate and rhythm, no murmurs - GI/Abdominal GI/Abdominal exam: normal bowel sounds, soft, non-tender, no organomegaly or mass - Extremities Exam Extremities exam: no edema - Skin Skin exam: no rash Results - Labs CBC & BMP: 02/15/17 04:51 02/15/17 04:51 Lab Results: I have reviewed the past 24 hour labs (Repeat blood culture pending )
[2017-02-16] MEDS: CARVEDILOL 3.125 MG TABLET PO SCH ×2 (09:15→21:30)
[2017-02-16] MEDS: PHENAZOPYRIDINE 95 MG TABLET PO SCH ×2 (09:15→17:50)
[2017-02-16] MEDS: DIVALPROEX 500 MG TABLET PO SCH ×3 (09:15→21:29)
[2017-02-16] MEDS: DULoxetine 30 MG CAPSULE PO SCH (09:15)
[2017-02-16] MEDS: ASPIRIN 325 MG TABLET PO SCH (09:15)
--- NOTE | 2017-02-16 10:01 | Post Interventional Procedure ---
Pre-op diagnosis: Klebsiella pneumonia, IV ABx Post-op diagnosis: same Procedure: LUE PICC Flouroscopy: 0.1 min Radiologist: Lopez Castro Anesthesia: local Specimens: none sent Estimated blood loss: none Complications: none Condition: stable Assessment and Plan - Time spent with patient Time spent with patient: Less than 30 minutes
--- NOTE | 2017-02-16 10:09 | Ultrasound Report ---
US guide vascular access, IR PICC line insertion Indication: Klebsiella pneumonia. Long-term IV antibiotics as outpatient. PICC LINE Description: A formal timeout was performed. Maximum sterile barrier technique was used. Sonographic evaluation of the left upper extremity demonstrates patent and compressible basilic vein. The upper arm was prepped and draped in sterile fashion. 3 cc 1% lidocaine was administered subcutaneously. Under sonographic guidance, a micropuncture needle was advanced into the vein. A captured sonographic image documents the position of the needle. Needle was exchanged over a wire for a peel-away sheath. A dual lumen power PICC, cut to 39 cm, was advanced over the wire until the tip was at the RA-SVC junction. The position of the catheter was confirmed with fluoroscopic guidance and an image stored in PACS. The wire and sheath were removed. Both ports of the PICC were aspirated and flushed with heparinized saline. The device was secured with a StatLock. Fluoroscopy: 0.1 minute. Impression: PICC line ready for immediate use. Routine catheter care. PROCEDURE INTERPRETED AT [facility] DEPARTMENT OF RADIOLOGY Final Report Signed by: Lopez Castro M.D.
--- NOTE | 2017-02-16 11:12 | Hospitalist Progress Note ---
Assessment and Plan (1) UTI (urinary tract infection) Status: Acute Assessment and plan: Impression: 1. Urinary tract infection with bacteremia Plan: We appreciate infectious disease assistance. If the bleeding at the PICC line site stops later on today, we can let her go home. She may need evaluation for a colovesical fistula; this can be done as an outpatient This note was completed using Mydish voice recognition software. There may be manager multimedia errors as a result. Current Visit: No Qualifiers: Urinary tract infection type: acute pyelonephritis Qualified Code(s): N10 - Acute pyelonephritis Hospitalist: Subjective Interval history: Follow-up recurrent urinary tract infection with bacteremia. Infectious disease has seen the patient. She has now undergone PICC line placement. She will receive 2 weeks of Rocephin at home. Tells me that the etiology of the recurring urinary infections is felt to be neurogenic bladder with incomplete emptying. I do not see that the CT scan has been performed to evaluate for the possibility of a fistula. This could certainly be done as an outpatient, if it has not been done already. Exam - Constitutional Vitals: Period Temp Pulse Resp BP Sys/Alanis Pulse Ox Last 24 Hr 97.4 F-98.6 F 58-70 18-20 134-159/59-76 92-97 Vital signs are noted above. Heart is regular with no murmur or gallop. Tones are distant. Lungs are clear with no rales or wheezes. PICC line is in place in the left upper extremity. There continues to be some oozing around the puncture site. Results - Labs CBC & BMP: 02/15/17 04:51 02/15/17 04:51 Specialty Discharge - Follow Up or Referrals Follow up with: Sophie Lo MD [Physician] - 02/23/17 12:00 pm
[2017-02-16] MEDS: cefTRIAXone 2,000 MG in SODIUM CHLORIDE 0.9% 100 ML IV SCH (14:12)
--- NOTE | 2017-02-16 16:02 | Event Note ---
The patient is still having some venous bleeding at the site of the puncture where the PICC line was inserted. I feel that we have no choice but to watch overnight, and ensure that the bleeding stops. Home health has been by, and the antibiotics for home use have already been delivered. If her bleeding stops in the morning, we can let her go home
[2017-02-16] MEDS: ROSUVASTATIN 20 MG TABLET PO SCH (21:30)
[2017-02-16] MEDS: LISINOPRIL 20 MG TABLET PO SCH (21:30)
[2017-02-17] MEDS: INSULIN REGULAR 100 UNIT/ML SUBCUT SCH ×3 (01:33→12:57)
[2017-02-17] MEDS: LEVOTHYROXINE 25 MCG TABLET PO SCH (06:01)
[2017-02-17] MEDS ORDERED: CYANOCOBALAMIN 1000 MCG/1 ML VIAL IM SCH (09:00)
--- NOTE | 2017-02-17 09:47 | Event Note ---
Patient remained in hospital overnight due to bleeding at PICC insertion site. The bleeding has stopped. She is feeling well today. She has not any fever. Repeat blood cultures from the first May negative to date. Patient probably going home today and I will see her in the office next week Wednesday. She is going to be treated with daily ceftriaxone. Discussed with at bedside.
--- NOTE | 2017-02-17 10:06 | Discharge Summary ---
Hospital Course - Hospital Course Hospital Course: Discharge diagnosis: 1. Recurrent urinary tract infection with bacteremia 2. Neurogenic bladder The patient presented to the hospital with another and a long series of urinary tract infections. The says that she has had a workup for this, and has been told that she has a neurogenic bladder with incomplete emptying. During this hospitalization, blood cultures and urine cultures grew Klebsiella, and she was treated with appropriate antibiotics. We asked infectious disease for their opinion, and they recommended a 2 week course of IV antibiotics. A PICC line was placed on 02/16, but the patient had some persistent oozing from the site. This has now stopped, and she is ready for discharge home. I reviewed her records. Based on available information, I am not sure that she is ever had a CT of the pelvis to rule out a fistula. I discussed this with the , and he says that he will mention this to their urologist. We would probably want to get the acute cystitis cleared up before scanning the pelvis to look for a chronic infection. Medication reconciliation has been performed. Regular home diet. Activity as tolerated. Follow-up with infectious disease has already been arranged for next week. This note was completed using [employer] voice recognition software. There may be senior service aide errors as a result. Diagnosis - Discharge Diagnosis (1) UTI (urinary tract infection) Status: Acute Specialty Discharge - Follow Up or Referrals Follow up with: Sophie Lo MD [Physician] - 02/23/17 12:00 pm Discharge Plan - Discharge Data Disposition: Home Health Service Condition at Discharge: Stable Discharge Diet: advance to your usual diet Activity: resume usual activities as tolerated Hygiene: no restrictions Weight Bearing at Discharge: full weight bearing Driving: no restrictions - Discharge Medications New cefTRIAXone [Rocephin] 2,000 mg IV Q24H vial Acetaminophen Tab [Tylenol Tab] 650 mg PO Q4H PRN #0 tablet PRN Reason: Mild Pain or Temp >/=100.5 Continue Lisinopril 20 mg PO BEDTIME Rosuvastatin Calcium [Crestor] 40 mg PO BEDTIME Metformin HCl [Metformin HCl ER] 1,000 mg PO BID glipiZIDE [Glucotrol] 10 mg PO BIDAC Divalproex [Depakote] 500 mg PO TID Topiramate 100 mg PO QID Hydrocodone/Acetaminophen [Hydrocodon-Acetaminoph 7.5-325] 1 tablet PO Q6HR PRN PRN Reason: Pain Duloxetine HCl [Duloxetine] 30 mg PO DAILY Acetaminophen Tab [Tylenol Tab] 650 mg PO Q4H PRN #0 tablet PRN Reason: Fever, Headache, Mild Pain Aspirin Tab 325 mg PO DAILY tablet Carvedilol [Coreg] 3.125 mg PO BID tablet Clopidogrel [Plavix] 75 mg PO BEDTIME tablet Cyanocobalamin Inj [Vitamin B12 Inj] 1,000 mcg IM DAILY vial Levothyroxine Tab [Synthroid Tab] 25 mcg PO DAILY@0700 tablet Meloxicam 7.5 mg PO BID Ergocalciferol [Drisdol] 50,000 unit PO Q7D capsule Ranitidine Tab [Zantac Tab] 150 mg PO BID - Follow Up or Referral Follow Up: Sophie Lo MD [Physician] - 02/23/17 12:00 pm - Forms/Instructions Exam - Constitutional Vitals: Period Temp Pulse Resp BP Sys/Alanis Pulse Ox Last 24 Hr 97.5 F-98.5 F 61-68 18-20 143-161/63-76 92-99 PICC site in the left upper extremity is clean with no ongoing bleeding. Heart is regular with no murmur. Lungs are clear with no rales or wheezes. Discharge Results Procedures and tests throughout hospitalization: Pending Orders 02/15/17 16:25 Blood Culture Stat Labs on day of discharge: Labs from last 24 hours 02/17/17 02/17/17 02/17/17 08:46 06:02 01:05 POC Glucose 175 H 109 H 115 H 02/16/17 02/16/17 02/16/17 22:48 20:41 15:29 POC Glucose 119 H 68 L 205 H 02/16/17 12:23 POC Glucose 186 H Preliminary micro results at discharge 02/15/17 16:25 Blood Culture - Preliminary Blood No growth at 1 day 02/15/17 16:25 Blood Culture - Preliminary Blood No growth at 1 day DS: Provider Date of admission: 02/13/17 01:44 Primary care physician: . No PCP Attending physician on admission: Bobo Ribeiro MD Consults: 02/15/17 13:08 Consult to Physician [CONS] Routine Comment: recurrent UTI and bacteremia Consulting Provider: Sophie Lo Consulting Provider Notified: No When should Consulting Provider be notified: Now Person Notified: Dr. Taveras Date Notified: 02/15/17 Time Notified: 13:20 02/15/17 15:59 Consult to Case Mgmt/Social Srvs [CONS] Routine Reason for Case Mgmt/Social Srvs: Home IV Therapy Consult Comment: Ceftriaxone 2 g IV daily, last dose on February 28 Discharging clinician: Leon Oliveros MD Expected date of discharge: 02/17/17
[2017-02-17] MEDS: SODIUM CHLORIDE 0.9% 1,000 ML IV SCH (10:32)
[2017-02-17] MEDS: cefTRIAXone 2,000 MG in SODIUM CHLORIDE 0.9% 100 ML IV SCH (10:32)
[2017-02-17] MEDS: DIVALPROEX 500 MG TABLET PO SCH (10:34)
[2017-02-17] MEDS: PHENAZOPYRIDINE 95 MG TABLET PO SCH (10:34)
[2017-02-17] MEDS: CARVEDILOL 3.125 MG TABLET PO SCH (10:34)
[2017-02-17] MEDS: DULoxetine 30 MG CAPSULE PO SCH (10:34)
[2017-02-17 12:58] VITALS: BP 161/62
[2017-02-18] MEDS ORDERED: ERGOCALCIFEROL 50,000 UNIT CAPSULE PO SCH (09:00)
--- NOTE | 2017-02-22 09:22 | Physician Query Form ---
CLICK EDIT DOCUMENT TO SELECT QUERY ANSWER --> OK --> SIGN Keke Moreira RN Clinical Infectious Disease Physician W) [phone] (f) [phone] [email or web address] PROVIDERS: Make your selection(s) from the choices in EACH section by typing an "x" and enter comments in the comment section. Please use your independent medical judgment in providing your response. This request does not imply that any particular answer is desired or expected. CLINICAL INDICATORS: (Providers should not edit this section) Based on conflicting documentation of "septicemia" and "bacteremia" in the medical record. Dr. Taveras consult note states "Septicemia due to Klebsiella pneumonia". Discharge summary states " blood cultures and urine cultures grew Klebsiella, and she was treated with appropriate antibiotics. We asked infectious disease for their opinion, and they recommended a 2 week course of IV antibiotics". Based on the above, could you clarify the appropriate diagnosis, if significant , that supports the above abnormalities and additional evaluation, monitoring, and/or treatment rendered: ( ) Pt. treated for Septicemia due to Klebsiella pneumonia ( ) Pt. treated for bacteremia ( x) Other, please specify: ( ) Clinically unable to determine COMMENTS: Patient had sepsis at admission with a leukocytosis of 28 cell fever 100.9 acute kidney injury creatinine 1.10. Yesterday sternal patient did have bacteremia and because of documented side of infection septicemia can be included to see me referring to the patient with sepsis and isolated organisms in the blood Use of terms such as suspected, likely, or probable (associated with a specific diagnosis that is being evaluated, monitored, or treated as if it exists) are acceptable and can be restated in the discharge summary if not ruled out. MTDD
== END 2017-02-17 12:55 | disposition home health service (06) | DRG 872 ==
LOC: N.ED 21:10 → N.EDINP 02-13 01:44 → SUATTDRO 02-13 01:44 → N.2E 02-13 02:13
PROVIDERS: ADMIT Internal Medicine Infectious Disease; ATTEND Internal Medicine Geriatric Medicine

== ENCOUNTER 2021-01-14 07:19 | Inpatient (IN) ==
[2021-01-09 10:44] LABS: Basophils % 0.5 % (0.0-0.8); Eosinophils # 0.1 10*3/uL (0.0-0.87); Eosinophils % 1.4 % (0.00-10.9); Hematocrit 37.6 VOL% (35.7-47.0); Hemoglobin 11.8 GM/DL (12.0-16.0); Immature Granulocytes % 0.4 %; Immature Granulocytes Absolute 0.02 #; Lymphocytes # 2.6 10*3/uL (1.4-4.0); Mean Corpuscular HGB Conc 31.4 GM/DL (32-36); Mean Corpuscular Volume 95.7 FL (87-102); Mean Platelet Volume 11.2 FL (9.6-12.0); Monocytes % 9.5 % (1.7-12.7); Neutrophils % 43.2 % (38.7-73.9); Platelet Count 169 T/CUMM (130-400); Red Blood Count 3.93 MC/CUMM (3.8-5.5); Red Cell Distribution Width 13.9 % (9.3-17.3); White Blood Count 5.7 T/CUMM (4-12)
[2021-01-09 10:53] LABS: PT Patient Result 10.5 SECS (9.8-11.9)
[2021-01-09 10:59] LABS: Albumin 3.1 G/DL (3.4-5.0); Bilirubin,Total 0.4 MG/DL (0.2-1.0); Calcium 9.3 MG/DL (8.5-10.1); Osmolality,Calculated 288.4 MOS/KG (273-304); Potassium 4.6 MMOL/L (3.5-5.1); Total Protein 6.8 G/DL (6.4-8.2)
[~2021-01-14 07:19] MED LIST: ceFAZolin 1,000 MG in SYRINGE 1 EACH IV ONE
[2021-01-14] MEDS ORDERED: HEPARIN 5,000 UNIT/1 ML VIAL ONE ×3 (08:00→09:23)
[2021-01-14] MEDS: LACTATED RINGERS 1,000 ML IV SCH ×4 (08:15→23:41)
[2021-01-14] MEDS ORDERED: ETOMIDATE 40 MG/20 ML VIAL IV ONE (09:18)
[2021-01-14] MEDS ORDERED: fentaNYL 100 MCG/2 ML VIAL ONE (09:18)
[2021-01-14] MEDS ORDERED: ROCURONIUM 50 MG/5 ML VIAL IV ONE (09:18)
[2021-01-14] MEDS ORDERED: LIDOCAINE 2% 5 ML VIAL ONE (09:18)
[2021-01-14] MEDS ORDERED: PHENYLEPHRINE DRIP 20 MG/250 ML PREMIX IV ONE (09:22)
[2021-01-14] MEDS ORDERED: ePHEDrine 50 MG/ML VIAL ONE (10:27)
[2021-01-14] MEDS ORDERED: ACETAMINOPHEN 1,000 MG/100 ML VIAL IV ONE (10:30)
[2021-01-14] MEDS ORDERED: ONDANSETRON 4 MG/2 ML VIAL ONE (10:30)
[2021-01-14] MEDS ORDERED: LACTATED RINGERS 1,000 ML IV ONE (10:43)
[2021-01-14] MEDS ORDERED: TISSUE ADHESIVE 1 EACH APPLICATOR TOP ONE (11:31)
[2021-01-14] MEDS ORDERED: PROTAMINE SULFATE 50 MG/5 ML VIAL IV ONE (11:33)
[2021-01-14] MEDS ORDERED: SUGAMMADEX 200 MG/2 ML VIAL IV ONE (11:36)
[2021-01-14] MEDS ORDERED: SEVOFLURANE 1 UNIT/15 MINUTE INH ONE (11:53)
[2021-01-14] MEDS ORDERED: ONDANSETRON 4 MG/2 ML VIAL IV PRN (12:03)
[2021-01-14] MEDS ORDERED: tiZANidine 4 MG TABLET PO PRN (12:07)
[2021-01-14] MEDS ORDERED: ACETAMINOPHEN 325 MG TABLET PO PRN (12:07)
[2021-01-14] MEDS: HYDROmorphone 2 MG/1 ML VIAL IV PRN ×2 (14:52→21:32)
[2021-01-14] MEDS: glipiZIDE 10 MG TABLET PO SCH (17:18)
[2021-01-14] MEDS: DOXYCYCLINE HYCLATE 100 MG CAPSULE PO SCH (17:18)
[2021-01-14] MEDS ORDERED: LISINOPRIL 40 MG PO SCH (21:00)
[2021-01-14] MEDS: METHENAMINE HIPPURATE 1 GM TABLET PO SCH (21:31)
[2021-01-14] MEDS: DIVALPROEX ER 500 MG TABLET PO SCH (21:31)
[2021-01-14] MEDS: CLOPIDOGREL 75 MG TABLET PO SCH (21:31)
[2021-01-14] MEDS: TOPIRAMATE 200 MG TABLET PO SCH (21:31)
[2021-01-14] MEDS: ROSUVASTATIN 20 MG TABLET PO SCH (21:31)
[2021-01-14] MEDS: RIVAROXABAN 2.5 MG TABLET PO SCH (21:31)
[2021-01-15 05:17] LABS: Hematocrit 23.7 VOL% (35.7-47.0); Hemoglobin 7.9 GM/DL (12.0-16.0)
[2021-01-15 05:41] LABS: Calcium 7.9 MG/DL (8.5-10.1); Osmolality,Calculated 280.4 MOS/KG (273-304); Potassium 3.7 MMOL/L (3.5-5.1)
[2021-01-15] MEDS: LEVOTHYROXINE 50 MCG TABLET PO SCH (06:01)
[2021-01-15] MEDS: amLODIPine 5 MG TABLET PO SCH (09:01)
[2021-01-15] MEDS: RIVAROXABAN 2.5 MG TABLET PO SCH ×2 (09:02→21:22)
[2021-01-15] MEDS: METHENAMINE HIPPURATE 1 GM TABLET PO SCH ×2 (09:02→21:22)
[2021-01-15] MEDS: DIVALPROEX 500 MG TABLET PO SCH (09:02)
[2021-01-15] MEDS: TOPIRAMATE 200 MG TABLET PO SCH ×2 (09:02→21:22)
[2021-01-15] MEDS: EZETIMIBE 10 MG TABLET PO SCH (09:02)
[2021-01-15] MEDS: glipiZIDE 10 MG TABLET PO SCH ×2 (09:02→16:57)
[2021-01-15] MEDS: ASPIRIN CHEW 81 MG TABLET PO SCH (09:02)
[2021-01-15] MEDS: DOXYCYCLINE HYCLATE 100 MG CAPSULE PO SCH ×2 (09:02→16:57)
[2021-01-15] MEDS: [UNRECOGNIZED DRUG - OTHER] SUBCUT SCH (09:55)
[2021-01-15 15:13] LABS: Basophils % 0.4 % (0.0-0.8); Eosinophils % 0.4 % (0.00-10.9); Hematocrit 23.9 VOL% (35.7-47.0); Hemoglobin 7.4 GM/DL (12.0-16.0); Immature Granulocytes % 0.2 %; Immature Granulocytes Absolute 0.01 #; Lymphocytes # 1.8 10*3/uL (1.4-4.0); Lymphocytes % 31.9 % (21.3-54.2); Mean Corpuscular Volume 97.6 FL (87-102); Mean Platelet Volume 10.9 FL (9.6-12.0); Monocytes % 14.3 % (1.7-12.7); Neutrophils % 52.8 % (38.7-73.9); Platelet Count 117 T/CUMM (130-400); Red Blood Count 2.45 MC/CUMM (3.8-5.5); White Blood Count 5.6 T/CUMM (4-12)
[2021-01-15] MEDS: ROSUVASTATIN 20 MG TABLET PO SCH (21:23)
[2021-01-15] MEDS: CLOPIDOGREL 75 MG TABLET PO SCH (21:23)
[2021-01-15] MEDS: DIVALPROEX ER 500 MG TABLET PO SCH (21:29)
[2021-01-16 05:43] LABS: Basophils % 0.2 % (0.0-0.8); Eosinophils % 0.3 % (0.00-10.9); Hematocrit 23.5 VOL% (35.7-47.0); Immature Granulocytes % 0.3 %; Immature Granulocytes Absolute 0.02 #; Lymphocytes # 1.7 10*3/uL (1.4-4.0); Lymphocytes % 26.3 % (21.3-54.2); Mean Corpuscular Volume 92.5 FL (87-102); Mean Platelet Volume 11.5 FL (9.6-12.0); Neutrophils % 56.9 % (38.7-73.9); Platelet Count 117 T/CUMM (130-400); Red Blood Count 2.54 MC/CUMM (3.8-5.5); Red Cell Distribution Width 13.8 % (9.3-17.3); White Blood Count 6.6 T/CUMM (4-12)
[2021-01-16] MEDS: LEVOTHYROXINE 50 MCG TABLET PO SCH (05:47)
[2021-01-16 06:07] LABS: Hypochromasia 1+; Lymphocytes 27 % (20-55); Microcytosis 1+; Segmented Neutrophils 58 % (50-85); Total Cells Counted 100
[2021-01-16] MEDS: glipiZIDE 10 MG TABLET PO SCH ×2 (09:13→16:32)
[2021-01-16] MEDS: DOXYCYCLINE HYCLATE 100 MG CAPSULE PO SCH ×2 (09:13→17:32)
[2021-01-16] MEDS: METHENAMINE HIPPURATE 1 GM TABLET PO SCH ×2 (09:14→21:13)
[2021-01-16] MEDS: ASPIRIN CHEW 81 MG TABLET PO SCH (09:14)
[2021-01-16] MEDS: DIVALPROEX 500 MG TABLET PO SCH (09:14)
[2021-01-16] MEDS: amLODIPine 5 MG TABLET PO SCH (09:15)
[2021-01-16] MEDS: TOPIRAMATE 200 MG TABLET PO SCH ×2 (09:15→21:13)
[2021-01-16] MEDS: [UNRECOGNIZED DRUG - OTHER] SUBCUT SCH (09:16)
[2021-01-16] MEDS: EZETIMIBE 10 MG TABLET PO SCH (09:16)
[2021-01-16] MEDS: RIVAROXABAN 2.5 MG TABLET PO SCH ×2 (11:16→21:13)
[2021-01-16] MEDS: ROSUVASTATIN 20 MG TABLET PO SCH (21:13)
[2021-01-16] MEDS: MULTIVITAMIN (INTRINSIC) CAPSULE PO SCH (21:13)
[2021-01-16] MEDS: CLOPIDOGREL 75 MG TABLET PO SCH (21:13)
[2021-01-16] MEDS: HYDROmorphone 2 MG/1 ML VIAL IV PRN (21:14)
[2021-01-16] MEDS: DIVALPROEX ER 500 MG TABLET PO SCH (21:14)
[2021-01-17] MEDS: LEVOTHYROXINE 50 MCG TABLET PO SCH (05:35)
[2021-01-17] MEDS: EZETIMIBE 10 MG TABLET PO SCH (08:25)
[2021-01-17] MEDS: DIVALPROEX 500 MG TABLET PO SCH (08:25)
[2021-01-17] MEDS: ASPIRIN CHEW 81 MG TABLET PO SCH (08:27)
[2021-01-17] MEDS: RIVAROXABAN 2.5 MG TABLET PO SCH (08:27)
[2021-01-17] MEDS: METHENAMINE HIPPURATE 1 GM TABLET PO SCH (08:27)
[2021-01-17] MEDS: glipiZIDE 10 MG TABLET PO SCH (08:27)
[2021-01-17] MEDS: amLODIPine 5 MG TABLET PO SCH (08:27)
[2021-01-17] MEDS: TOPIRAMATE 200 MG TABLET PO SCH (08:27)
[2021-01-17] MEDS: MULTIVITAMIN (INTRINSIC) CAPSULE PO SCH (08:27)
[2021-01-17] MEDS: DOXYCYCLINE HYCLATE 100 MG CAPSULE PO SCH (08:27)
[2021-01-17] MEDS: [UNRECOGNIZED DRUG - OTHER] SUBCUT SCH (09:26)
[2021-01-17 11:56] VITALS: BP 110/38
[2021-01-21] MEDS ORDERED: NON-FORMULARY MEDICATION (Alendronate [Fosamax] 70 mg Tablet) PO SCH (09:00)
== END 2021-01-17 03:45 | disposition home or self-care (01) | DRG 253 ==
LOC: N.OR 07:19 → N.SDSINP 07:20 → N.3E 13:10
PROVIDERS: ADMIT Surgery; ATTEND Surgery

== ENCOUNTER 2022-11-13 13:24 | Inpatient (IN) ==
[2022-11-13] MEDS ORDERED: SODIUM CHLORIDE 0.9% 1,000 ML IV STA (15:37)
[2022-11-13 15:45] LABS: Basophils % 0.4 % (0.0-0.8); Eosinophils % 0.4 % (0.00-10.9); Hematocrit 30.5 VOL% (35.7-47.0); Hemoglobin 9.4 GM/DL (12.0-16.0); Immature Granulocytes % 0.4 %; Immature Granulocytes Absolute 0.03 #; Lymphocytes # 2.1 10*3/uL (1.4-4.0); Lymphocytes % 24.8 % (21.3-54.2); Mean Corpuscular HGB Conc 30.8 GM/DL (32-36); Mean Corpuscular Volume 93.6 FL (87-102); Mean Platelet Volume 10.3 FL (9.6-12.0); Monocytes # 0.5 10*3/uL (0.11-0.8); Monocytes % 5.8 % (1.7-12.7); Neutrophils % 68.2 % (38.7-73.9); Platelet Count 325 T/CUMM (130-400); Red Blood Count 3.26 MC/CUMM (3.8-5.5); Red Cell Distribution Width 13.9 % (9.3-17.3); White Blood Count 8.4 T/CUMM (4-12)
[2022-11-13] MEDS ORDERED: PIPERACILLIN/TAZOBACTAM 3,375 MG in SODIUM CHLORIDE 0.9% 100 ML IV STA (15:54)
[2022-11-13 15:59] LABS: Calcium 9.1 MG/DL (8.5-10.1); Potassium 3.4 MMOL/L (3.5-5.1)
[2022-11-13] MEDS ORDERED: ACETAMINOPHEN 325 MG TABLET PO PRN (16:47)
[2022-11-13] MEDS ORDERED: LACTULOSE 20 GM/30 ML UDCUP PO PRN (16:47)
[2022-11-13] MEDS ORDERED: CALCIUM CARBONATE CHEW 500 MG TABLET PO PRN (16:47)
[2022-11-13] MEDS ORDERED: BISACODYL 5 MG TABLET PO PRN (16:47)
[2022-11-13] MEDS ORDERED: ONDANSETRON 4 MG/2 ML VIAL IV PRN (16:47)
[2022-11-13] MEDS ORDERED: SIMETHICONE CHEW 125 MG TABLET PO PRN (16:47)
[2022-11-13] MEDS ORDERED: ALUMINUM/MAGNES/SIMETH MAX STR 30 ML UDCUP PO PRN (16:47)
[2022-11-13 16:56] LABS: Bacteria,Urine Many /HPF (Few); RBC,Urine 114 /HPF (0-4); Urine Color Yellow (Yellow)
[2022-11-13 16:57] LABS: Bilirubin,Urine Negative (Negative); Blood, Urine Large mg/dL (Negative); Glucose,Urine (UA) 100 mg/dL (Negative); Ketones,Urine Negative (Negative); Nitrite,Urine Negative (Negative); Protein,Urine 100 mg/dL (Negative); Urine Appearance Cloudy (Clear); Urine Specific Gravity 1.025 (1.001-1.035); Urine Urobilinogen < 2.0 eU/dL (<2.0)
[2022-11-13 17:00] LABS: Sedimentation Rate-Westergren 112 MM/HR (0-30)
[2022-11-13 17:18] LABS: Alanine Aminotransferase < 6 U/L (13-56); Albumin 2.2 G/DL (3.4-5.0); Alkaline Phosphatase 65 U/L (45-117); Aspartate Amino Transferase 7 U/L (0-37); Bilirubin,Direct < 0.100 MG/DL (0.0-0.20); Bilirubin,Indirect 0.3 MG/DL (0.0-1.0); Bilirubin,Total < 0.39 MG/DL (0.20-1.00); Total Protein 7.7 G/DL (6.4-8.2)
[2022-11-13] MEDS ORDERED: POTASSIUM BICARB EFFERVESCENT 20 MEQ TAB.EFF PO ONE (17:28)
[2022-11-13] MEDS ORDERED: DEXTROSE 50% 25 GM/50 ML VIAL IV PRN (17:31)
[2022-11-13] MEDS ORDERED: DEXTROSE 10% 250 ML BAG IV PRN (17:31)
[2022-11-13] MEDS ORDERED: GLUCAGON 1 MG VIAL IM PRN (17:31)
[2022-11-13] MEDS: SODIUM CHLORIDE 0.9% 1,000 ML IV SCH (17:35)
[2022-11-13 21:01] LABS: Folate 6.97 NG/ML (5.38-24.0)
[2022-11-13] MEDS: DOCUSATE SODIUM 100 MG CAPSULE PO SCH (22:08)
[2022-11-13] MEDS: levETIRAcetam 500 MG TABLET PO SCH (22:08)
[2022-11-13] MEDS: ENOXAPARIN 40 MG/0.4 ML SYRINGE SUBCUT SCH (22:08)
[2022-11-13] MEDS: INSULIN REGULAR 100 UNIT/ML SUBCUT SCH (22:09)
[2022-11-13] MEDS: PIPERACILLIN/TAZOBACTAM 3,375 MG in SODIUM CHLORIDE 0.9% 100 ML IV SCH (22:10)
[2022-11-14] MEDS: SODIUM CHLORIDE 0.9% 1,000 ML IV SCH (04:19)
[2022-11-14 06:01] LABS: Basophils % 0.2 % (0.0-0.8); Eosinophils % 0.1 % (0.00-10.9); Hematocrit 31.8 VOL% (35.7-47.0); Hemoglobin 9.7 GM/DL (12.0-16.0); Immature Granulocytes % 1.3 %; Immature Granulocytes Absolute 0.12 #; Lymphocytes # 2.5 10*3/uL (1.4-4.0); Mean Corpuscular HGB Conc 30.5 GM/DL (32-36); Mean Corpuscular Volume 93.8 FL (87-102); Mean Platelet Volume 10.9 FL (9.6-12.0); Monocytes # 0.6 10*3/uL (0.11-0.8); Monocytes % 6.1 % (1.7-12.7); Neutrophils % 64.3 % (38.7-73.9); Platelet Count 334 T/CUMM (130-400); Red Blood Count 3.39 MC/CUMM (3.8-5.5); Red Cell Distribution Width 13.7 % (9.3-17.3)
[2022-11-14] MEDS ORDERED: LIDOCAINE 1% 5 ML VIAL ONE (06:15)
[2022-11-14] MEDS ORDERED: BUPIVACAINE MPF 0.25% 10 ML VIAL ONE (06:15)
[2022-11-14 06:23] LABS: Alanine Aminotransferase < 6 U/L (13-56); Albumin 2.2 G/DL (3.4-5.0); Alkaline Phosphatase 71 U/L (45-117); Aspartate Amino Transferase 10 U/L (0-37); Blood Urea Nitrogen 10 MG/DL (7-18); Calcium 9.1 MG/DL (8.5-10.1); Carbon Dioxide 24 MMOL/L (21-32); Chloride 105 MMOL/L (98-107); Cholesterol 123 MG/DL (50-200); Glucose 175 MG/DL (74-106); HDL Cholesterol 21 MG/DL (40-60); Osmolality,Calculated 277.7 MOS/KG (273-304); Potassium 2.8 MMOL/L (3.5-5.1); Risk Ratio 5.86; Sodium 138 MMOL/L (136-145); Total Protein 7.8 G/DL (6.4-8.2); Triglycerides 194 MG/DL (2-150); VLDL Cholesterol 38.8 MG/DL
[2022-11-14] MEDS ORDERED: propofoL 200 MG/20 ML VIAL IV ONE (06:24)
[2022-11-14] MEDS ORDERED: LIDOCAINE 2% 5 ML VIAL ONE (06:24)
[2022-11-14] MEDS ORDERED: fentaNYL 100 MCG/2 ML VIAL ONE (06:25)
[2022-11-14] MEDS ORDERED: POTASSIUM CHLORIDE 20 MEQ TABLET PO ONE (06:54)
[2022-11-14] MEDS: PIPERACILLIN/TAZOBACTAM 3,375 MG in SODIUM CHLORIDE 0.9% 100 ML IV SCH ×3 (08:25→22:19)
[2022-11-14] MEDS: DOCUSATE SODIUM 100 MG CAPSULE PO SCH ×2 (08:26→22:19)
[2022-11-14] MEDS: CARBIDOPA/LEVODOPA 25-100 MG TABLET PO SCH ×3 (08:26→22:23)
[2022-11-14] MEDS: levETIRAcetam 500 MG TABLET PO SCH ×2 (08:26→22:18)
[2022-11-14] MEDS: PANTOPRAZOLE 40 MG TABLET PO SCH (08:26)
[2022-11-14] MEDS ORDERED: FERRIC GLUCONATE COMPLEX 125 MG in SODIUM CHLORIDE 0.9% 100 ML IV SCH (09:00)
[2022-11-14] MEDS: SODIUM CHLOR 0.9% KCL 40 MEQ 40 MEQ/1,000 ML BAG IV SCH (10:30)
[2022-11-14] MEDS: INSULIN REGULAR 100 UNIT/ML SUBCUT SCH ×4 (11:25→22:20)
[2022-11-14] MEDS: ENOXAPARIN 40 MG/0.4 ML SYRINGE SUBCUT SCH (22:18)
[2022-11-15] MEDS: SODIUM CHLOR 0.9% KCL 40 MEQ 40 MEQ/1,000 ML BAG IV SCH ×4 (00:05→23:36)
[2022-11-15 05:34] LABS: Basophils % 0.4 % (0.0-0.8); Eosinophils % 0.3 % (0.00-10.9); Hemoglobin 8.6 GM/DL (12.0-16.0); Immature Granulocytes % 0.4 %; Immature Granulocytes Absolute 0.03 #; Lymphocytes % 28.5 % (21.3-54.2); Mean Corpuscular HGB Conc 30.7 GM/DL (32-36); Mean Corpuscular Volume 91.8 FL (87-102); Mean Platelet Volume 10.2 FL (9.6-12.0); Monocytes # 0.5 10*3/uL (0.11-0.8); Monocytes % 7.1 % (1.7-12.7); Neutrophils % 63.3 % (38.7-73.9); Platelet Count 311 T/CUMM (130-400); Red Blood Count 3.05 MC/CUMM (3.8-5.5); Red Cell Distribution Width 13.7 % (9.3-17.3); White Blood Count 6.9 T/CUMM (4-12)
[2022-11-15 05:55] LABS: Alanine Aminotransferase < 6 U/L (13-56); Alkaline Phosphatase 70 U/L (45-117); Aspartate Amino Transferase 10 U/L (0-37); Blood Urea Nitrogen 7 MG/DL (7-18); Carbon Dioxide 22 MMOL/L (21-32); Chloride 109 MMOL/L (98-107); Glucose 111 MG/DL (74-106); Osmolality,Calculated 277.4 MOS/KG (273-304); Potassium 3.8 MMOL/L (3.5-5.1); Sodium 140 MMOL/L (136-145); Total Protein 7.2 G/DL (6.4-8.2)
[2022-11-15] MEDS: INSULIN REGULAR 100 UNIT/ML SUBCUT SCH ×4 (07:23→21:51)
[2022-11-15] MEDS: DOCUSATE SODIUM 100 MG CAPSULE PO SCH ×2 (08:27→21:51)
[2022-11-15] MEDS: PANTOPRAZOLE 40 MG TABLET PO SCH (08:27)
[2022-11-15] MEDS: levETIRAcetam 500 MG TABLET PO SCH ×2 (08:27→21:51)
[2022-11-15] MEDS: CARBIDOPA/LEVODOPA 25-100 MG TABLET PO SCH ×3 (08:27→21:51)
[2022-11-15] MEDS: PIPERACILLIN/TAZOBACTAM 3,375 MG in SODIUM CHLORIDE 0.9% 100 ML IV SCH ×3 (08:29→23:24)
[2022-11-15] MEDS: FERRIC GLUCONATE COMPLEX 125 MG in SODIUM CHLORIDE 0.9% 100 ML IV SCH (12:43)
[2022-11-15] MEDS: amLODIPine 5 MG TABLET PO SCH ×2 (14:58→15:06)
[2022-11-15] MEDS: FLUoxetine 20 MG CAPSULE PO SCH ×2 (14:58→15:06)
[2022-11-15] MEDS: ASPIRIN CHEW 81 MG TABLET PO SCH (15:06)
[2022-11-15] MEDS: ENOXAPARIN 40 MG/0.4 ML SYRINGE SUBCUT SCH (21:51)
[2022-11-15] MEDS: METHENAMINE HIPPURATE 1 GM TABLET PO SCH (21:51)
[2022-11-16 06:00] LABS: Basophils # 0.1 10*3/uL (0.0-0.2); Basophils % 0.6 % (0.0-0.8); Eosinophils # 0.1 10*3/uL (0.0-0.87); Eosinophils % 0.9 % (0.00-10.9); Hematocrit 30.9 VOL% (35.7-47.0); Hemoglobin 9.6 GM/DL (12.0-16.0); Immature Granulocytes % 0.5 %; Immature Granulocytes Absolute 0.04 #; Lymphocytes # 3.1 10*3/uL (1.4-4.0); Lymphocytes % 38.6 % (21.3-54.2); Mean Corpuscular HGB Conc 31.1 GM/DL (32-36); Mean Corpuscular Volume 91.2 FL (87-102); Mean Platelet Volume 9.9 FL (9.6-12.0); Monocytes # 0.5 10*3/uL (0.11-0.8); Monocytes % 5.7 % (1.7-12.7); Neutrophils % 53.7 % (38.7-73.9); Platelet Count 375 T/CUMM (130-400); Red Blood Count 3.39 MC/CUMM (3.8-5.5); Red Cell Distribution Width 13.9 % (9.3-17.3); White Blood Count 8.1 T/CUMM (4-12)
[2022-11-16] MEDS: PIPERACILLIN/TAZOBACTAM 3,375 MG in SODIUM CHLORIDE 0.9% 100 ML IV SCH ×3 (06:20→23:49)
[2022-11-16 06:21] LABS: Alanine Aminotransferase < 6 U/L (13-56); Alkaline Phosphatase 65 U/L (45-117); Aspartate Amino Transferase 6 U/L (0-37); Blood Urea Nitrogen 5 MG/DL (7-18); Carbon Dioxide 22 MMOL/L (21-32); Chloride 109 MMOL/L (98-107); Glucose 128 MG/DL (74-106); Osmolality,Calculated 273.7 MOS/KG (273-304); Potassium 3.9 MMOL/L (3.5-5.1); Sodium 138 MMOL/L (136-145); Total Protein 7.3 G/DL (6.4-8.2)
[2022-11-16] MEDS: INSULIN REGULAR 100 UNIT/ML SUBCUT SCH ×4 (08:03→21:46)
[2022-11-16] MEDS: levETIRAcetam 500 MG TABLET PO SCH ×2 (09:28→21:45)
[2022-11-16] MEDS: CARBIDOPA/LEVODOPA 25-100 MG TABLET PO SCH ×3 (09:28→21:45)
[2022-11-16] MEDS: FLUoxetine 20 MG CAPSULE PO SCH (09:28)
[2022-11-16] MEDS: METHENAMINE HIPPURATE 1 GM TABLET PO SCH ×2 (09:28→21:45)
[2022-11-16] MEDS: DOCUSATE SODIUM 100 MG CAPSULE PO SCH ×2 (09:28→21:45)
[2022-11-16] MEDS: ASPIRIN CHEW 81 MG TABLET PO SCH (09:28)
[2022-11-16] MEDS: PANTOPRAZOLE 40 MG TABLET PO SCH (09:29)
[2022-11-16] MEDS: amLODIPine 5 MG TABLET PO SCH (09:29)
[2022-11-16] MEDS: FERRIC GLUCONATE COMPLEX 125 MG in SODIUM CHLORIDE 0.9% 100 ML IV SCH (13:14)
[2022-11-16] MEDS: SODIUM CHLOR 0.9% KCL 40 MEQ 40 MEQ/1,000 ML BAG IV SCH (15:04)
[2022-11-16] MEDS: ENOXAPARIN 40 MG/0.4 ML SYRINGE SUBCUT SCH (21:46)
[2022-11-17] MEDS: SODIUM CHLOR 0.9% KCL 40 MEQ 40 MEQ/1,000 ML BAG IV SCH (03:51)
[2022-11-17 04:08] LABS: Basophils % 0.5 % (0.0-0.8); Eosinophils # 0.1 10*3/uL (0.0-0.87); Eosinophils % 0.9 % (0.00-10.9); Hematocrit 26.1 VOL% (35.7-47.0); Hemoglobin 8.2 GM/DL (12.0-16.0); Immature Granulocytes % 0.3 %; Immature Granulocytes Absolute 0.02 #; Lymphocytes # 2.2 10*3/uL (1.4-4.0); Lymphocytes % 29.2 % (21.3-54.2); Mean Corpuscular HGB Conc 31.4 GM/DL (32-36); Mean Platelet Volume 10.1 FL (9.6-12.0); Monocytes # 0.5 10*3/uL (0.11-0.8); Monocytes % 7.1 % (1.7-12.7); Platelet Count 358 T/CUMM (130-400); Red Cell Distribution Width 13.8 % (9.3-17.3); White Blood Count 7.4 T/CUMM (4-12)
[2022-11-17 04:30] LABS: Calcium 8.3 MG/DL (8.5-10.1); Osmolality,Calculated 273.5 MOS/KG (273-304); Potassium 3.7 MMOL/L (3.5-5.1)
[2022-11-17] MEDS: PIPERACILLIN/TAZOBACTAM 3,375 MG in SODIUM CHLORIDE 0.9% 100 ML IV SCH ×3 (06:43→23:44)
[2022-11-17] MEDS: INSULIN REGULAR 100 UNIT/ML SUBCUT SCH ×4 (07:06→20:52)
[2022-11-17] MEDS ORDERED: MAGNESIUM SULF RIDER 2 GM/50 ML PREMIX IV ONE (08:30)
[2022-11-17] MEDS: amLODIPine 5 MG TABLET PO SCH (08:55)
[2022-11-17] MEDS: METHENAMINE HIPPURATE 1 GM TABLET PO SCH ×2 (08:55→20:51)
[2022-11-17] MEDS: DOCUSATE SODIUM 100 MG CAPSULE PO SCH ×2 (08:55→20:50)
[2022-11-17] MEDS: ASPIRIN CHEW 81 MG TABLET PO SCH (08:55)
[2022-11-17] MEDS: FLUoxetine 20 MG CAPSULE PO SCH (08:55)
[2022-11-17] MEDS: PANTOPRAZOLE 40 MG TABLET PO SCH (08:55)
[2022-11-17] MEDS: CARBIDOPA/LEVODOPA 25-100 MG TABLET PO SCH ×3 (08:55→20:51)
[2022-11-17] MEDS: levETIRAcetam 500 MG TABLET PO SCH ×2 (08:56→20:51)
[2022-11-17] MEDS: FERRIC GLUCONATE COMPLEX 125 MG in SODIUM CHLORIDE 0.9% 100 ML IV SCH (13:15)
[2022-11-17] MEDS: ENOXAPARIN 40 MG/0.4 ML SYRINGE SUBCUT SCH (20:50)
[2022-11-17] MEDS: TOPIRAMATE 100 MG TABLET PO SCH (20:50)
[2022-11-17] MEDS ORDERED: ROSUVASTATIN 20 MG TABLET PO SCH (21:00)
[2022-11-17] MEDS ORDERED: DIVALPROEX ER 500 MG TABLET PO SCH (21:00)
[2022-11-18 05:47] LABS: Basophils % 0.4 % (0.0-0.8); Eosinophils # 0.1 10*3/uL (0.0-0.87); Eosinophils % 1.1 % (0.00-10.9); Hematocrit 27.2 VOL% (35.7-47.0); Hemoglobin 8.7 GM/DL (12.0-16.0); Immature Granulocytes % 0.7 %; Immature Granulocytes Absolute 0.05 #; Lymphocytes # 2.4 10*3/uL (1.4-4.0); Lymphocytes % 33.6 % (21.3-54.2); Mean Corpuscular Volume 90.4 FL (87-102); Mean Platelet Volume 10.1 FL (9.6-12.0); Monocytes # 0.4 10*3/uL (0.11-0.8); Monocytes % 5.8 % (1.7-12.7); Neutrophils % 58.4 % (38.7-73.9); Platelet Count 377 T/CUMM (130-400); Red Blood Count 3.01 MC/CUMM (3.8-5.5); Red Cell Distribution Width 13.7 % (9.3-17.3); White Blood Count 7.2 T/CUMM (4-12)
[2022-11-18] MEDS: PIPERACILLIN/TAZOBACTAM 3,375 MG in SODIUM CHLORIDE 0.9% 100 ML IV SCH (06:11)
[2022-11-18 06:12] LABS: Calcium 8.9 MG/DL (8.5-10.1); Osmolality,Calculated 273.7 MOS/KG (273-304); Potassium 3.6 MMOL/L (3.5-5.1)
[2022-11-18] MEDS ORDERED: LEVOTHYROXINE 50 MCG TABLET PO SCH (06:30)
[2022-11-18] MEDS: INSULIN REGULAR 100 UNIT/ML SUBCUT SCH ×2 (08:10→11:51)
[2022-11-18] MEDS: ASPIRIN CHEW 81 MG TABLET PO SCH (09:03)
[2022-11-18] MEDS: DOCUSATE SODIUM 100 MG CAPSULE PO SCH (09:03)
[2022-11-18] MEDS: FLUoxetine 20 MG CAPSULE PO SCH (09:03)
[2022-11-18] MEDS: levETIRAcetam 500 MG TABLET PO SCH (09:03)
[2022-11-18] MEDS: amLODIPine 5 MG TABLET PO SCH (09:03)
[2022-11-18] MEDS: CARBIDOPA/LEVODOPA 25-100 MG TABLET PO SCH (09:03)
[2022-11-18] MEDS: PANTOPRAZOLE 40 MG TABLET PO SCH (09:03)
[2022-11-18] MEDS: METHENAMINE HIPPURATE 1 GM TABLET PO SCH (09:03)
[2022-11-18] MEDS: TOPIRAMATE 100 MG TABLET PO SCH (09:03)
[2022-11-18 11:14] VITALS: BP 134/56
[2022-11-18] MEDS: FERRIC GLUCONATE COMPLEX 125 MG in SODIUM CHLORIDE 0.9% 100 ML IV SCH (12:37)
== END 2022-11-18 13:39 | disposition hospice, home (50) | DRG 299 ==
LOC: EDUNIT# → EDBD → N.ED 13:24 → SUATTDRO 16:41 → N.EDINP 16:41 → N.3E 17:48
PROVIDERS: ADMIT Internal Medicine; ATTEND Internal Medicine